=== PATIENT | female | born 1995 | race Caucasian/White ===

== ENCOUNTER 2020-09-20 22:14 | Inpatient (IN) ==
[2020-09-20] MEDS ORDERED: Acetaminophen 325 MG TABLET PO PRN (22:21)
[2020-09-20] MEDS ORDERED: haloperidoL 5 MG TABLET PO PRN (22:21)
[2020-09-20] MEDS ORDERED: hydrOXYzine pamoate 25 MG CAPSULE PO PRN (22:21)
[2020-09-20] MEDS ORDERED: Haloperidol Lactate 5 MG/ML VIAL IM PRN (22:21)
[2020-09-20] MEDS ORDERED: *HR* LORazepam 2 MG/ML VIAL IM PRN (22:21)
[2020-09-20] MEDS ORDERED: *HR* LORazepam 1 MG TABLET PO PRN (22:21)
[2020-09-20] MEDS ORDERED: traZODone 50 MG TABLET PO PRN (22:21)
[2020-09-20] MEDS ORDERED: MOM Conc 10 ML UD.LIQ PO PRN (22:21)
[2020-09-21] MEDS: Prenatal Vit/FA 1 EACH TABLET PO SCH (13:51)
[2020-09-21] MEDS: RisperiDONE-M 1 MG TAB.RAPDIS PO SCH (20:28)
[2020-09-22] MEDS: Prenatal Vit/FA 1 EACH TABLET PO SCH (09:43)
[2020-09-22 11:05] LABS: Basophils % 0.3 %; Eosinophils % 0.2 %; Hematocrit 35.1 % (35.3-44.9); Hemoglobin 11.6 g/dL (11.5-15.4); Immature Granulocytes % 0.4 % (0-4); Lymphocytes # 1.6 K/mcL (0.6-4.6); Mean Corpuscular Hemoglobin 28.5 pg (28.0-33.3); Mean Corpuscular Volume 86.2 fL (83.0-100.0); Mean Platelet Volume 10.6 fL (9.4-12.4); Monocytes % 7.8 %; Neutrophils # 9.9 K/mcL (1.6-8.9); Platelet Count 264 K/mcL (140-400); Red Blood Count 4.07 M/mcL (3.82-4.97); Red Cell Distribution Width 13.3 % (11.5-14.5); Segmented Neutrophils % 78.3 %; White Blood Count 12.7 K/mcL (4.3-11.1)
[2020-09-22 11:27] LABS: Alanine Aminotransferase 25 Units/L (7-52); Albumin 3.8 g/dL (3.5-5.7); Albumin/Globulin Ratio 1.1 (1.1-2.2); Alkaline Phosphatase 119 Units/L (34-104); Aspartate Amino Transferase 24 Units/L (13-39); BUN/Creatinine Ratio 12 (6-26); Bilirubin,Total 0.3 mg/dL (0.3-1.0); Blood Urea Nitrogen 8 mg/dL (6-20); Calcium 8.9 mg/dL (8.6-10.3); Carbon Dioxide 22 mEq/L (23-29); Chloride 104 mEq/L (98-107); Globulin 3.4 g/dL (2.4-3.5); Glucose 128 mg/dL (70-105); Osmolality,Calculated 282 (280-300); Potassium 3.8 mEq/L (3.5-5.1); Sodium 136 mEq/L (136-145); Total Protein 7.2 g/dL (6.4-8.9); eGFR For African Americans > 60 (> 60); eGFR For Non-African Americans > 60 (> 60)
[2020-09-22 11:28] LABS: Alanine Aminotransferase 25 Units/L (7-52); Aspartate Amino Transferase 24 Units/L (13-39); Blood Urea Nitrogen 9 mg/dL (6-20); Lactate Dehydrogenase 192 Units/L (140-271); Uric Acid 2.8 mg/dL (2.3-7.6)
[2020-09-22 14:06] LABS: Bilirubin,Urine Negative (Negative); Blood,Urine Negative (Negative); Clarity,Urine Clear (Clear); Color,Urine Colorless (Yellow); Glucose,Urine (UA) Normal (Normal); Ketones,Urine Negative (Negative); Leukocyte Esterase,Urine Negative (Negative); Nitrite,Urine Negative (Negative); PH,Urine 6.5 pH Units (5.0-8.0); Protein,Urine Negative (Neg-Trace); Specific Gravity,Urine < 1.005 (1.010-1.025); Urobilinogen,Urine Normal (Normal)
[2020-09-22 18:37] LABS: Thyroid Stimulating Hormone 2.992 mcIU/mL (0.340-5.600)
[2020-09-22] MEDS: RisperiDONE-M 1 MG TAB.RAPDIS PO SCH (20:00)
[2020-09-22] MEDS: Mag Hydrox/Al Hydrox/Simeth 30 ML UDC PO PRN (20:00)
[2020-09-23] MEDS: Mag Hydrox/Al Hydrox/Simeth 30 ML UDC PO PRN (01:30)
[2020-09-23] MEDS ORDERED: RisperiDONE-M 1 MG TAB.RAPDIS PO SCH (09:00)
[2020-09-23] MEDS: Prenatal Vit/FA 1 EACH TABLET PO SCH (09:23)
[2020-09-23 13:55] VITALS: BP 126/79
== END 2020-09-23 14:55 | disposition short-term general hospital (02) | DRG 832 ==
LOC: 1ANU 22:14
PROVIDERS: ADMIT Psychiatry & Neurology Psychiatry; ATTEND Psychiatry & Neurology Psychiatry